=== PATIENT | female | born 1985 | race Caucasian/White ===

== ENCOUNTER 2019-02-09 16:14 | Inpatient (IN) | payer MEDICARE, OTHER ==
[~2019-02-09] VITALS: Ht 185.4 cm; Wt 113.9 kg
[~2019-02-09 16:14] MED LIST: ABIL1TAB11 PO; DICL1GEL3 TOP; ELIQ5TAB PO; ESCI10TA2 PO; GABA-843 PO; METH75TA PO; MIRT1TAB PO; PANT40TA3 PO; PERCOCET PO
[2019-02-09 17:00] VITALS: BP 116/78
[2019-02-09] MEDS ORDERED: CLIN150C14 PO (17:09)
[2019-02-09] MEDS ORDERED: MIRT1TAB15 PO (17:09)
[2019-02-09] MEDS ORDERED: ACETAMINOPHEN TAB 650MG DOSE (2X325MG) PO PRN (17:45)
[2019-02-09] MEDS: PERCOCET 5MG/325MG TAB PO PRN ×2 (18:15→23:23)
[2019-02-09 18:17] LABS: HEMATOCRIT 37.1 % (36.0-47.0); HEMOGLOBIN 11.6 g/dl (12.0-15.5); MEAN CORPUSCULAR HEMOGLOBIN 27.7 pg (27.0-33.0); MEAN CORPUSCULAR HGB CONC 31.3 g/dl (32.0-36.5); MEAN CORPUSCULAR VOLUME 88.5 fl (80.0-96.0); PLATELET COUNT, AUTOMATED 233 10^3/uL (150-450); RED BLOOD COUNT 4.19 10^6/uL (4.00-5.40); WHITE BLOOD COUNT 6.5 10^3/uL (4.0-10.0)
[2019-02-09 18:26] LABS: INR 0.96; PROTHROMBIN TIME 12.9 SECONDS (12.1-14.4)
[2019-02-09 18:27] LABS: PARTIAL THROMBOPLASTIN TIME 26.9 SECONDS (25.4-37.6)
--- NOTE | 2019-02-09 18:39 | HPE ---
DATE OF ADMISSION: 02/09/2019 REFERRING PHYSICIAN: Dr. Ramirez ATTENDING PHYSICIAN: Dr. Roman CHIEF COMPLAINT: Worsening abdominal wall seroma. HISTORY OF THE PRESENT ILLNESS: The patient is a 33-year-old white female with multiple chronic medical conditions listed below, came to the hospital for evaluation of worsening abdominal wall seroma. The history is provided by herself as well as by review of the medical record and back to January 06, 2019, she was admitted to the hospital due to the inflammation of her abdominal wall. For that, she underwent extended panniculectomy by Dr. Ramirez of plastic surgery, and she was discharged home on 01/08/2019. Per her, after discharge from the hospital, she followed up with Dr. Ramirez in the office for three times. She was treated with two courses of oral Keflex. Initially she was doing okay. However, in the last few days, she said her appetite is poor, and she has a lot of nausea but no vomiting. And then she went to [facility] Emergency Room (ER) on the weekend. She had an abdominal CT scan, which demonstrated she had abdominal wall seroma or abscess; the size is about 18 x 3 cm. CAT scan imaging was reviewed by Dr. Ramirez who recommended she come to the hospital here for further evaluation. Otherwise, she denies any fever. No chills. She also states she has worsening diarrhea compared with her chronic loose stool at baseline. REVIEW OF SYSTEMS: Denies fever. No chills. No headache. No blurred vision. No shortness of breath. No chest pain. No abdominal pain but nausea but no vomiting. Positive loose stools. No bloody stool. No tingling, numbness, weakness in the arms and legs, and all other systems were reviewed but negative. PAST MEDICAL HISTORY: 1. DVT, on Eliquis. 2. PTSD. 3. Chronic musculoskeletal pain. 4. Reflux. 5. Morbid obesity. PAST SURGICAL HISTORY: Cholecystectomy. Right above-knee amputation (AKA). Gastric bypass surgery. Tubal ligation. Appendectomy. Left ankle fracture repair. Recent panniculectomy. ALLERGIES: Allergic to NONSTEROIDAL ANTI-INFLAMMATORY DRUGS (NSAIDs). SOCIAL HISTORY: Denies tobacco use. Denies alcohol abuse. Denies illicit drug abuse. She is a [employer]. FAMILY HISTORY: No family history of myocardial infarction ([place]), stroke or blood clot. MEDICATIONS: Reviewed. PHYSICAL EXAMINATION: VITAL SIGNS: Temperature 97.8, heart rate 77, respirations 17, blood pressure 116/78, oxygen saturation 98% on room air. GENERAL: She is awake, alert, oriented times three. She is not in acute distress. HEENT: Atraumatic. Pupils are equal, round, reactive to light. No jaundice. Extraocular muscles intact. Ears, nose, throat: Normal. Mouth: Mucosa drain. NECK: No jugular venous distention (JVD). LUNGS: Clear. No wheezing, no crackles. HEART; S1, S2, regular. No murmur. ABDOMEN: Soft. Bowel sounds positive, nontender. There is a big surgical wound in her lower abdominal area with some drainage. LOWER EXTREMITIES: No edema. She has right AKA. NEUROLOGIC: Nonfocal. PSYCHOLOGIC: No acute psychosis. SKIN: No rash. DIAGNOSTIC AND LAB STUDIES: Outside abdominal CT which demonstrates there is an 18 x 2.4 cm abdominal wall fluid collection. IMPRESSION: 1. Abdominal wall seroma. 2. Status post extended panniculectomy. 3. History of deep vein thrombosis (DVT). 4. Post-traumatic stress disorder (PTSD). 5. Chronic pain. 6. Morbid obesity. PLAN: The patient will be admitted to the medical-surgical floor and will hold Eliquis. I will start heparin for DVT prophylaxis. Will start her on IV Zosyn for possible infection. Will consult interventional radiology department for the fluid drainage, and Dr. Ramirez will consult tomorrow morning. BARBARA
[2019-02-09 19:32] LABS: BLOOD UREA NITROGEN 6 MG/DL (7-18); CALCIUM LEVEL 8.6 MG/DL (8.5-10.1); CARBON DIOXIDE LEVEL 26 MEQ/L (21-32); CHLORIDE LEVEL 108 MEQ/L (98-107); CREATININE FOR GFR 0.73 MG/DL (0.55-1.30); GLOMERULAR FILTRATION RATE > 60.0 (>60); GLUCOSE, FASTING 94 MG/DL (70-100); POTASSIUM SERUM 4.1 MEQ/L (3.5-5.1); SODIUM LEVEL 142 MEQ/L (136-145)
[2019-02-09] MEDS ORDERED: ONDANSETRON 4 MG TAB (S0181) PO ONE (20:15)
[2019-02-09] MEDS: PIPERACILLIN/TAZOBACTAM SOD 3.375 GM in D5W MINI-BAG PLUS 50 ML IV SCH (20:30)
[2019-02-09] MEDS: HEPARIN SOD (PORCINE) 5000 UNITS/ML VIAL SC SCH (20:31)
[2019-02-09 22:00] VITALS: BP 115/73
[2019-02-10] MEDS: PIPERACILLIN/TAZOBACTAM SOD 3.375 GM in D5W MINI-BAG PLUS 50 ML IV SCH ×3 (02:17→14:38)
[2019-02-10] MEDS: PERCOCET 5MG/325MG TAB PO PRN ×2 (05:56→10:48)
[2019-02-10] MEDS: HEPARIN SOD (PORCINE) 5000 UNITS/ML VIAL SC SCH ×2 (05:56→13:32)
[2019-02-10 06:00] VITALS: BP 106/58
[2019-02-10 06:21] LABS: HEMATOCRIT 34.2 % (36.0-47.0); HEMOGLOBIN 10.6 g/dl (12.0-15.5); MEAN CORPUSCULAR HEMOGLOBIN 27.7 pg (27.0-33.0); MEAN CORPUSCULAR VOLUME 89.5 fl (80.0-96.0); PLATELET COUNT, AUTOMATED 187 10^3/uL (150-450); RED BLOOD COUNT 3.82 10^6/uL (4.00-5.40); WHITE BLOOD COUNT 5.1 10^3/uL (4.0-10.0)
[2019-02-10 06:29] LABS: INR 0.99; PROTHROMBIN TIME 13.2 SECONDS (12.1-14.4)
[2019-02-10 06:44] LABS: BLOOD UREA NITROGEN 8 MG/DL (7-18); CALCIUM LEVEL 8.7 MG/DL (8.5-10.1); CARBON DIOXIDE LEVEL 25 MEQ/L (21-32); CHLORIDE LEVEL 108 MEQ/L (98-107); CREATININE FOR GFR 0.79 MG/DL (0.55-1.30); GLOMERULAR FILTRATION RATE > 60.0 (>60); GLUCOSE, FASTING 95 MG/DL (70-100); POTASSIUM SERUM 3.4 MEQ/L (3.5-5.1); SODIUM LEVEL 143 MEQ/L (136-145)
--- NOTE | 2019-02-10 07:55 | CR.PDOC ---
Plastic Surgery Consultation Date of Consultation 02/10/19 History and Physical CONSULT REPORT FOR: Medical team REASON FOR CONSULTATION: Abdominal wall seroma HISTORY OF PRESENT ILLNESS: 33 y/o female with multiple medical problems, on chr onic anticoagulation s/p panniculectomy on 01/06/19. She had uneventful recovery and was back to her daily routines. Saturday, 02/06 she developed pain in the lower abdomen with increased drainage from the small opening in her lower abdominal incision. Seen in ER (other facility), CT abdomen revealed seroma lower abdominal part. Normal blood work. No fever, chills. Patient seen in my office 02/09, unable to drain seroma. Found patient to be dehydrated. Decision was made admit to hospital for IVF, antibiotics, seroma drainage. Medical service contacted to help manage medical part of care. PAST MEDICAL HISTORY: 1. DVT, PE, trauma right LE. PAST SURGICAL HISTORY: INCLUDES: 1. Right AKA, panniculectomy. PREVIOUS ANESTHESIA REACTIONS: none ALLERGIES: Please see below. FAMILY HISTORY: non contributory. HOME MEDICATIONS: Please see below. REVIEW OF SYSTEMS: GENERAL: Denies chills, reports weight gain, reports feeling febrile yesterday. HEENT: Denies blurred vision and double vision. Denies ear symptoms. Denies hoarseness. NECK: Denies any neck pain]. CARDIOVASCULAR: Denies chest pain and palpitations. MUSCULOSKELETAL: Denies arthralgias, back pain and thrombophlebitis. SKIN: Denies rash. NEUROLOGIC: Denies headache, stroke and transient ischemic attack. PSYCHIATRIC: Denies anxiety and depression. ENDOCRINE: Denies thyroid disease. HEMATOLOGY/ONCOLOGY: Denies bleeding or clotting disorder. HEART: Denies any chest pains, palpitations, paroxysmal dyspnea, orthopnea. PULMONARY: Denies chronic cough, dyspnea and wheezing. GASTROINTESTINAL: Denies rectal bleeding, family history of colon cancer, constipation, diarrhea, dysphagia, heartburn and jaundice. GENITOURINARY: Denies dysuria, frequency, hematuria and nocturia. ENDOCRINE: Denies polydipsia, polyphagia, polyuria, heat or cold intolerance. INFECTIOUS: Denies any recent upper respiratory tract infection, UTI, need for use of antibiotics. NUTRITION: Reports good appetite. PHYSICAL EXAMINATION: VITALS SIGNS: Please see below. GENERAL APPEARANCE:Patient seen, laying in bed, awake, alert, and oriented. Comfortable, in no acute distress. SKIN: Warm and moist. HEENT: Normocephalic, atraumatic. [place] palpebral conjunctiva, anicteric sclerae. Lips and mucosa appear moist. NECK: Supple, no thyromegaly. No obvious jugular venous distention. LUNGS: Clear to auscultation bilaterally. No wheezing appreciated. HEART: No chest wall abnormalities. Regular rate and rhythm with no murmurs appreciated. ABDOMEN: Abdomen is soft, tenderness only around the incision. Minimal serous drainage from the small 1 cm opening left side. Surrounding skin redness. No definite collection felt LABORATORY DATA: Please see below. IMAGING STUDIES: CT brought in from outside facility IMPRESSION AND PLAN: Abdominal wall collection, skin cellulitis around incision, dehydration. Continue with IVF, antibiotics Plan for collection drainage with IR Culture the collection fluid Will continue to follow patient. Feeling much better today. All findings and plan discussed with patient and she agrees to proceed. Vital Signs Vital Signs Date Time Temp Pulse Resp B/P (MAP) Pulse Ox O2 Delivery O2 Flow Rate FiO2 02/10/19 06:27 16 02/10/19 06:00 96.0 62 106/58 (74) 97 I&Os I&O- Last 24 Hours up to 6 AM 02/10/19 06:00 Intake Total 1080 ml Output Total 0 ml Balance 1080 ml Laboratory Data Labs 24H Laboratory Tests 2 02/09/19 18:01: Nucleated Red Blood Cells % (auto) 0.0, Prothrombin Time 12.9, Prothromb Time International Ratio 0.96, Activated Partial Thromboplast Time 26.9, Anion Gap 8, Glomerular Filtration Rate > 60.0, Blood Urea Nitrogen 6L, Creatinine 0.73, Sodium Level 142, Potassium Level 4.1, Chloride Level 108H, Carbon Dioxide Level 26, Calcium Level 8.6 02/10/19 06:02: Nucleated Red Blood Cells % (auto) 0.0, Prothrombin Time 13.2, Prothromb Time International Ratio 0.99, Activated Partial Thromboplast Time 28.0, Anion Gap 10, Glomerular Filtration Rate > 60.0, Blood Urea Nitrogen 8, Creatinine 0.79, Sodium Level 143, Potassium Level 3.4L, Chloride Level 108H, Carbon Dioxide Level 25, Calcium Level 8.7 CBC/BMP Laboratory Tests 02/09/19 18:01 Red Blood Count 4.19, Mean Corpuscular Volume 88.5, Mean Corpuscular Hemoglobin 27.7, Mean Corpuscular Hemoglobin Concent 31.3 L, Red Cell Distribution Width 13.2, Calcium Level 8.6 02/10/19 06:02 Red Blood Count 3.82 L, Mean Corpuscular Volume 89.5, Mean Corpuscular Hemoglobin 27.7, Mean Corpuscular Hemoglobin Concent 31.0 L, Red Cell Distribution Width 13.2, Calcium Level 8.7 Home Medications Scheduled Apixaban (Eliquis) 5 Mg Tab, 5 MG PO BID, (Reported) Aripiprazole (Abilify) 5 Mg Tab, 2.5 MG PO DAILY, (Reported) Clindamycin Hcl (Clindamycin HCl) 150 Mg Capsule, 450 MG PO TID, (Reported) STARTED 02/08 FOR 10 DAYS Escitalopram Oxalate (Escitalopram Oxalate) 10 Mg Tab, 10 MG PO DAILY, (Reported) Gabapentin (Gabapentin) 300 Mg Cap, 300 MG PO BID, (Reported) Mirtazapine (Mirtazapine) 15 Mg Tab.rapdis, 15 MG PO QHS, (Reported) Pantoprazole Sodium (Pantoprazole Sodium) 40 Mg Tab, 40 MG PO DAILY, (Reported) Scheduled PRN Diclofenac Sodium (Diclofenac Sodium) 1 % Gel, 4 GM TOP QID PRN for BACK PAIN, (Reported) Apply to area of pain Methocarbamol (Methocarbamol) 750 Mg Tab, 750 MG PO Q6H PRN for MUSCLE SPASMS, (Reported) Allergies Coded Allergies: salsalate (Verified Allergy, Intermediate, 01/06/19) gi upset ALEXANDRE RODRÍGUEZ DO February 10, 2019 07:55
[2019-02-10] MEDS ORDERED: ONDANSETRON 4 MG TAB (S0181) PO PRN (10:30)
--- NOTE | 2019-02-10 10:38 | IPNPDOC ---
Date Seen The patient was seen on 02/10/19. Progress Note Subjective 33-year-old female with a PMHx of Obesity and DVT on Eliquis was here on 01/06 for abdominal wall infection and s/p Panniculectomy admitted for abdominal wall seroma feels nausea and no other events overnight Reviews of systems no fever no chills no chest pain no abdominal pain no diarrhea +Nausea Physical examination General: She is awake, alert, oriented times three. She is not in acute distress HEENT: Atraumatic. Pupils equal round and react to light. No jaundice. Extraocular muscles intact. Ear, nose and throat normal. Mouth mucous membranes dry. Neck: No jugular venous distention (JVD). No bruits. Lungs: clear, no rales no wheezing Heart: S1 and S2. Regular. no murmur Abdomen: Soft. Bowel sounds positive. Nontender. there are severe small wound openings in her abdominal wall surgical incisions Lower Extremities: right AKA Skin: No rash. Neurologic: Nonfocal. Psychologic: No acute psychosis. Assessment and Plans 1. Abdominal wall seroma, s/p Panniculectomy will continue IVF, Zosyn Dr Ramirez consulted Plans for IR drainage of seroma 2. DVT, Eliquis on hold for procedure; heparin sc will use 3. PTSD/depression, stable A-FIB/CHADSVASC A-FIB History Current/History of A-Fib/PAF?: No Current Oral Anticoagulant The: No VS, I&O, 24H, Fishbone Vital Signs/I&O Vital Signs Date Time Temp Pulse Resp B/P (MAP) Pulse Ox O2 Delivery O2 Flow Rate FiO2 02/10/19 06:27 16 02/10/19 06:00 96.0 62 106/58 (74) 97 I&O- Last 24 Hours up to 6 AM 02/10/19 05:59 Intake Total 720 ml Output Total 0 ml Balance 720 ml Laboratory Data 24H LABS Laboratory Tests 2 02/09/19 18:01: Nucleated Red Blood Cells % (auto) 0.0, Prothrombin Time 12.9, Prothromb Time International Ratio 0.96, Activated Partial Thromboplast Time 26.9, Anion Gap 8, Glomerular Filtration Rate > 60.0, Blood Urea Nitrogen 6L, Creatinine 0.73, [place] um Level 142, Potassium Level 4.1, Chloride Level 108H, Carbon Dioxide Level 26, Calcium Level 8.6 02/10/19 06:02: Nucleated Red Blood Cells % (auto) 0.0, Prothrombin Time 13.2, Prothromb Time International Ratio 0.99, Activated Partial Thromboplast Time 28.0, Anion Gap 10, Glomerular Filtration Rate > 60.0, Blood Urea Nitrogen 8, Creatinine 0.79, Sodium Level 143, Potassium Level 3.4L, Chloride Level 108H, Carbon Dioxide Level 25, Calcium Level 8.7 CBC/BMP Laboratory Tests 02/09/19 18:01 Red Blood Count 4.19, Mean Corpuscular Volume 88.5, Mean Corpuscular Hemoglobin 27.7, Mean Corpuscular Hemoglobin Concent 31.3 L, Red Cell Distribution Width 13.2, Calcium Level 8.6 02/10/19 06:02 Red Blood Count 3.82 L, Mean Corpuscular Volume 89.5, Mean Corpuscular Hemoglobin 27.7, Mean Corpuscular Hemoglobin Concent 31.0 L, Red Cell Di stribution Width 13.2, Calcium Level 8.7 VIJAY NIEVES MD February 10, 2019 10:38
[2019-02-10] MEDS ORDERED: LIDOCAINE 1% MDV 20ML VIAL As Ordered ONE (14:51)
[2019-02-10] MEDS ORDERED: ONDA4TAB5 PO (16:41)
--- NOTE | 2019-02-10 18:57 | DS.PDOC ---
Discharge Summary General Date of Admission February 09, 2019 at 16:30 Date of Discharge february 10, 2019 Attending Physician: VIJAY NIEVES MD Specialist/Consultants Involve: ALEXANDRE RAMIREZ DO Discharge Summary PROCEDURES PERFORMED DURING STAY: IR catheter guided aspiration ADMITTING DIAGNOSES: 1. abdominal wall seroma DISCHARGE DIAGNOSES: 1. abdominal wall seroma, s/p catheter guided aspiration COMPLICATIONS/CHIEF COMPLAINT: Seroma. HISTORY OF PRESENT ILLNESS: The patient is a 33-year-old white female with multiple chronic medical conditions listed below, came to the hospital for evaluation of worsening abdominal wall seroma. The history is provided by herself as well as by review of the medical record and back to January 06, 2019, she was admitted to the hospital due to the inflammation of her abdominal wall. For that, she underwent extended panniculectomy by Dr. Ramirez of plastic surgery, and she was discharged home on 01/08/2019. Per her, after discharge from the hospital, she followed up with Dr. Ramirez in the office for three times. She was treated with two courses of oral Keflex. Initially she was doing okay. However, in the last few days, she said her appetite is poor, and she has a lot of nausea but no vomiting. And then she went to [facility] Emergency Room (ER) on the weekend. She had an abdominal CT scan, which demonstrated she had abdominal wall seroma or abscess; the size is about 18 x 3 cm. CAT scan imaging was reviewed by Dr. Ramirez who recommended she come to the hospital here for further evaluation. Otherwise, she denies any fever. No chills. She also states she has worsening diarrhea compared with her chronic loose stool at baseline. HOSPITAL COURSE: after admission, she was treated with IV Zosyn; Meanwhile, IR was consulted and she underwent for catheter aspiration on 02/10; since she is afebrile, no leukocytosis, no evidence of infection, so abx was discontinued. Per Dr Ramirez, patient was discharged home without abx. she is going to follow with Dr Ramirez in the office on Saturday. DISCHARGE MEDICATIONS: Please see below. ALLERGIES: Please see below. PHYSICAL EXAMINATION ON DISCHARGE: VITAL SIGNS: Please see below. GENERAL: AA Ox3 HEENT: atraumatic NECK: no JVD CARDIOVASCULAR EXAMINATION: S1S2 regular RESPIRATORY EXAMINATION:clear, no rales no wheezing ABDOMINAL EXAMINATION: obese, soft, BS positive, abdominal wall wound stable EXTREMITIES: right AKA SKIN: no rash NEUROLOGICAL EXAMINATION: non focal PSYCHIATRIC EXAMINATION: no acute psychosis LABORATORY DATA: Please see below. IMAGING: non PROGNOSIS: fair ACTIVITY: [As tolerated]. DIET: regular DISCHARGE PLAN: see below DISPOSITION: 01 Home, Self-Care. DISCHARGE INSTRUCTIONS: 1. follow [address] Dr Ramirez on Saturday DISCHARGE CONDITION: stable TIME SPENT ON DISCHARGE: Greater than 35 minutes. Vital Signs/I&Os Vital Signs Date Time Temp Pulse Resp B/P (MAP) Pulse Ox O2 Delivery O2 Flow Rate FiO2 02/10/19 11:18 16 02/10/19 06:00 96.0 62 106/58 (74) 97 I&O- Last 24 Hours up to 6 AM 02/10/19 06:00 Intake Total 1080 ml Output Total 0 ml Balance 1080 ml Laboratory Data Labs 24H Laboratory Tests 2 02/10/19 06:02: Nucleated Red Blood Cells % (auto) 0.0, Prothrombin Time 13.2, Prothromb Time International Ratio 0.99, Activated Partial Thromboplast Time 28.0, Anion Gap 10, Glomerular Filtration Rate > 60.0, Blood Urea Nitrogen 8, Creatinine 0.79, Sodium Level 143, Potassium Level 3.4L, Chloride Level 108H, Carbon Dioxide Level 25, Calcium Level 8.7 CBC/BMP Laboratory Tests 02/10/19 06:02 Red Blood Count 3.82 L, Mean Corpuscular Volume 89.5, Mean Corpuscular Hemoglobin 27.7, Mean Corpuscular Hemoglobin Concent 31.0 L, Red Cell Distribution Width 13.2, Calcium Level 8.7 Microbiology Microbiology 02/10/19 Anaerobic Culture, Received Pending 02/10/19 Gram Stain, Received Pending 02/10/19 Abscess Culture, Received Pending Discharge Medications Scheduled Apixaban (Eliquis) 5 Mg Tab, 5 MG PO BID, (Reported) Aripiprazole (Abilify) 5 Mg Tab, 2.5 MG PO DAILY, (Reported) Escitalopram Oxalate (Escitalopram Oxalate) 10 Mg Tab, 10 MG PO DAILY, (Reported) Gabapentin (Gabapentin) 300 Mg Cap, 300 MG PO BID, (Reported) Mirtazapine (Mirtazapine) 15 Mg Tab.rapdis, 15 MG PO QHS, (Reported) Pantoprazole Sodium (Pantoprazole Sodium) 40 Mg Tab, 40 MG PO DAILY, (Reported) Scheduled PRN Diclofenac Sodium (Diclofenac Sodium) 1 % Gel, 4 GM TOP QID PRN for BACK PAIN, (Reported) Apply to area of pain Methocarbamol (Methocarbamol) 750 Mg Tab, 750 MG PO Q6H PRN for MUSCLE SPASMS, (Reported) Ondansetron HCl (Ondansetron HCl) 4 Mg Tablet, 4 MG PO Q4HP PRN for NAUSEA OR VOMITING Allergies Coded Allergies: salsalate (Verified Allergy, Intermediate, 01/06/19) gi upset VIJAY NIEVES MD February 10, 2019 18:57
--- NOTE | 2019-02-11 11:33 | REP ---
ULTRASOUND-GUIDED ABDOMINAL SEROMA DRAIN The procedure was performed under the direct supervision of Dr. Stern. The risks and benefits of the procedure were explained to the patient and informed consent was obtained. The abdominal seroma was localized using ultrasound guidance. The skin was prepped and draped in a sterile fashion. 1% lidocaine was used as a local anesthetic. Using ultrasound guidance a 5-[place] Skater centesis catheter was inserted and 40 ml of clear letha colored fluid was withdrawn and sent to lab for analysis. The patient tolerated the procedure well and there were no immediate complications. After the appropriate amount of monitored convalescence the patient was discharged from the department. Reviewed by CHEL Roberson 02/10/2019 05:00 P Electronically Signed by Ismael Stern MD 02/11/2019 08:59 A
== END 2019-02-10 17:25 | disposition home or self-care (01) | DRG 920 ==
LOC: M MS5PR 16:30
PROVIDERS: ADMIT Internal Medicine; ATTEND Internal Medicine
PROC: 0W9F40Z Drainage of Abdominal Wall with Drainage Device, Percutaneous Endoscopic Approach (ICD-10-PCS; principal; 2019-02-10)
DX: L76.34 Postprocedural seroma of skin and subcutaneous tissue following other procedure (principal); L03.311 Cellulitis of abdominal wall; E66.01 Morbid (severe) obesity due to excess calories; Z68.33 Body mass index [BMI] 33.0-33.9, adult; F43.10 Post-traumatic stress disorder, unspecified; Z86.718 Personal history of other venous thrombosis and embolism; Z79.01 Long term (current) use of anticoagulants; Z79.899 Other long term (current) drug therapy; Z88.8 Allergy status to other drugs, medicaments and biological substances; E86.0 Dehydration; Z89.611 Acquired absence of right leg above knee

== ENCOUNTER → 2019-06-03 | Outpatient (REF) | payer MEDICARE, OTHER ==
[~2019-06-03] MED LIST changes: +CLIN150C14 PO; +METH750T2 PO; -METH75TA PO; +MIRT1TAB15 PO; +ONDA4TAB5 PO
== END ==
LOC: M LAB REF 12:17
PROVIDERS: ATTEND Plastic Surgery Surgery of the Hand
DX: D22.39 Melanocytic nevi of other parts of face (principal)